=== PATIENT | male | born 1960 | race Caucasian/White ===

== ENCOUNTER 2017-03-05 17:37 | Emergency (ER) | payer OTHER ==
[~2017-03-05 17:37] MED LIST: Sodium Chloride Irrig Solution 250 ML BOT ONE
[2017-03-05] MEDS ORDERED: Acetaminophen/Codeine 30-300mg Tablet ONE (18:00)
[2017-03-05] MEDS ORDERED: Triple Antibiotic Oint 1 GM Packet ONE (18:01)
[2017-03-05] MEDS ORDERED: Adacel (T-DAP) 0.5 ML VIAL ONE (18:01)
[2017-03-05] MEDS ORDERED: Sulfameth/Trimethoprim DS 800-160mg TAB ONE (18:01)
[2017-03-05] MEDS ORDERED: Cipro 250 MG TAB ONE (18:05)
== END 2017-03-05 18:25 | disposition home or self-care (01) ==
LOC: MADERS 17:37
DX: S61.411A Laceration without foreign body of right hand, initial encounter (principal); S51.011A Laceration without foreign body of right elbow, initial encounter; S61.216A Laceration without foreign body of right little finger without damage to nail, initial encounter; E11.9 Type 2 diabetes mellitus without complications; E78.5 Hyperlipidemia, unspecified; I10 Essential (primary) hypertension; Z79.899 Other long term (current) drug therapy; Z23 Encounter for immunization; Z79.84 Long term (current) use of oral hypoglycemic drugs; Z79.01 Long term (current) use of anticoagulants; W25.XXXA Contact with sharp glass, initial encounter
CPT/HCPCS: 90471; 90715